=== PATIENT | female | born 1940 | race Caucasian/White ===

== ENCOUNTER 2021-10-07 15:08 | Emergency (ER) | payer MEDICARE, OTHER, SELFPAY ==
--- NOTE | 2021-10-07 15:15 | XR_ITS ---
WS: [id number] Exam: XR chest 1V portable [id number] Date/Time of Exam: 10/07/2021 3:17 PM Reason For Exam: chest pain No previous exams. The lungs are fully inflated and clear. Normal cardiomediastinal silhouette. No pleural effusions. Sp ondylosis of the thoracic spine. Remaining bony elements are intact. XR/XR chest 1V portable [id number] IMPRESSION: 1. No acute cardiopulmonary finding.
--- NOTE | 2021-10-07 15:16 | ECG_ITS ---
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 Measurements Intervals [place] Rate: 133 P: NC: QRS: -28 QRSD: 96 T: 70 QT: 302 QTc: 451 Interpretive Statements ATRIAL FIBRILLATION WITH RAPID VENTRICULAR RESPONSE INCOMPLETE RIGHT BUNDLE BRANCH BLOCK [90+ ms QRS DURATION, TERMINAL R IN V1/V2, 40+ ms S IN I/aVL/V4/V5/V6] MODERATE VOLTAGE CRITERIA FOR LVH, CONSIDER NORMAL VARIANT [MEETS CRITERIA IN ONE OF: R(aVL), S(V1), R(V5), R(V5/V6)+S(V1)] POSSIBLE SEPTAL MYOCARDIAL INFARCTION , PROBABLY OLD [30 ms Q WAVE IN V1/V2] ABNORMAL RHYTHM ECG No previous ECG available for comparison Electronically Signed On 10-07-2021 21:23:04 CDT by Danica Cleary M.D. [email or web address] Corporationconer[facility] critical care hospitalNuv[facility]un[facility].[employer]store/[id number]
[2021-10-07 15:26] VITALS: BP 149/97; PULSE 133; RESP 18; TEMP 36.6; O2SAT 97; BMI 25.3
[2021-10-07 15:51] LABS: Basophils # 0.1 10^3/uL (0.0-0.1); Basophils % 0.6 %; Eosinophils # 0.3 10^3/uL (0.0-0.8); Eosinophils % 3.5 %; Hematocrit 45.4 % (37.0-47.0); Hemoglobin 15.2 g/dL (11.5-15.3); Lymphocytes # 3.7 10^3/uL (0.8-4.8); Lymphocytes % 46.6 %; Mean Corpuscular HGB Conc 33.5 g/dL (30.0-36.0); Mean Corpuscular Volume 83.6 fl (81-99); Mean Platelet Volume 9.8 fL (7.4-10.4); Monocytes # 0.7 10^3/uL (0.2-0.9); Monocytes % 8.5 %; Neutrophils # 3.26 10^3/uL (1.8-7.7); Neutrophils % 40.7 %; Nucleated Red Blood Cells % 0 %; Platelet Count 293 10^3/cmm (130-400); Red Blood Count 5.43 10^6/uL (4.1-5.3); Red Cell Distribution Width 15.3 % (12.1-15.1)
[2021-10-07 15:55] VITALS: BP 121/77; PULSE 79; RESP 16; O2SAT 97
[2021-10-07] MEDS: sodium chloride 0.9% 1,000 ML 999 ML IV (15:56)
--- NOTE | 2021-10-07 16:12 | W.ED.ARRPALP ---
Documented by User: Hamzah Alcantar MD 10/08/21 07:10 HPI - Arrhythmia/Palpitations General: Chief Complaint: Arrhythmia/Palpitations Stated Complaint: chest pains Time Seen by Provider: 10/07/21 15:25 History of Present Illness: Patient comes in with palpitations and chest pain that started a couple days ago. States that she felt her heart racing after being outside working a couple days ago but then it went away. States it happened again today. Denies fever, cough, vomiting, diarrhea. Associated symptoms: Deny anxiety, nausea or vomiting Review of Systems Const: Denies: fever(s) or body aches Eyes: Denies: change in vision or blurry vision ENMT: Denies: throat pain or odynophagia Card: Reports: chest pain and palpitations Resp: Denies: dyspnea or productive cough GI: Denies: abdominal pain, nausea or vomiting : Denies: flank pain or dysuria Musc: Denies: neck pain or back pain Skin/Breast: Denies: rash or pruritus Neuro: Denies: headache(s) or numbness in extremities Psych: Denies: anxiety or change in appetite Endo: Denies: polyuria or excessive sweating Physical Exam Const: COMMON NORMALS: no acute distress, patient oriented x3, healthy appearing and alert HENMT: COMMON NORMALS: normocephalic and atraumatic HEAD & SCALP: normocephalic and atraumatic Eye: COMMON NORMALS: Equal, round and reactive pupils present and EOMs intact bilaterally PUPIL: Yes Equal, round and reactive pupils present Neck/C-Spine: COMMON NORMALS: full ROM and supple Resp: COMMON NORMALS: normal respiratory effort, No retractions and No use of accessory muscles Cardio: OTHER: Tachycardia with an irregularlyirregular rhythm GI: COMMON NORMALS: Normal to inspection, nondistended, normoactive bowel sounds present, Soft to palpation and non-tender PALPATION: Yes Soft to palpation Back/Pelvis: COMMON NORMALS: thoracic and lumbar spine normal to inspection and no thoracic nor lumbar tenderness Extremity: COMMON NORMALS: normal to inspection and full ROM Neuro: COMMON NORMALS: patient oriented x3 SENSORIUM/ORIENTATION: Yes alert Psych: COMMON NORMALS: mental status grossly normal and cooperative Skin: COMMON NORMALS: no rashes or lesions noted and no wounds GENERAL SKIN EXAM: no rashes or lesions noted Course Vital Signs: Vital signs: Vital Signs Temperature 97.4 F L 10/07/21 18:55 Pulse Rate 68 10/07/21 18:55 Respiratory Rate 16 10/07/21 18:55 Blood Pressure 143/88 10/07/21 18:55 Pulse Oximetry 98 10/07/21 18:55 MDM - Arrhythmia/Palpitations Medical Decision Making Patient comes in with palpitations and chest pain that started a couple days ago. States that she felt her heart racing after being outside working a couple days ago but then it went away. States it happened again today. Denies fever, cough, vomiting, diarrhea. On physical exam she is tachycardic with an irregularly irregular rhythm. Stat EKG shows A. fib with RVR, which is new for her. Will check labs, give IV fluids, start diltiazem bolus and drip, and reassess. Patient's repeat troponin here is negative she is actually converted here after Cardizem she feels much improved she would like to go home. Her vitals are charted at 644 actually another patient's vitals she is not febrile and is not requiring any oxygen patient feels improved would like to go home we will set her up with cardiology follow-up along with a cardiac event monitor she is to return if worsening she understands and agrees with plan. Lab Data : 10/07/21 15:37 10/07/21 15:37 Radiology Impressions Chest X-Ray 10/07/21 15:15 IMPRESSION: 1. No acute cardiopulmonary finding. Laboratory Results WBC 8.0 10^3/uL (4.0-10.0) 10/07/21 15:37 RBC 5.43 10^6/uL (4.1-5.3) H 10/07/21 15:37 Hgb 15.2 g/dL (11.5-15.3) 10/07/21 15:37 Hct 45.4 % (37.0-47.0) 10/07/21 15:37 MCV 83.6 fl (81-99) 10/07/21 15:37 MCH 28.0 pg (28.0-34.0) 10/07/21 15:37 MCHC 33.5 g/dL (30.0-36.0) 10/07/21 15:37 RDW 15.3 % (12.1-15.1) H 10/07/21 15:37 Plt Count 293 10^3/cmm (130-400) 10/07/21 15:37 MPV 9.8 fL (7.4-10.4) 10/07/21 15:37 Neut % (Auto) 40.7 % 10/07/21 15:37 Lymph % (Auto) 46.6 % 10/07/21 15:37 Mcdonald % (Auto) 8.5 % 10/07/21 15:37 Eos % (Auto) 3.5 % 10/07/21 15:37 Baso % (Auto) 0.6 % 10/07/21 15:37 Neut # (Auto) 3.26 10^3/uL (1.8-7.7) 10/07/21 15:37 Lymph # (Auto) 3.7 10^3/uL (0.8-4.8) 10/07/21 15:37 Mcdonald # (Auto) 0.7 10^3/uL (0.2-0.9) 10/07/21 15:37 Eos # (Auto) 0.3 10^3/uL (0.0-0.8) 10/07/21 15:37 Baso # (Auto) 0.1 10^3/uL (0.0-0.1) 10/07/21 15:37 Nucleated RBC % (auto) 0 % 10/07/21 15:37 Nucleated RBCs # 0.0 /100WBC 10/07/21 15:37 Sodium 136 mmol/L (136-145) 10/07/21 15:37 Potassium 4.0 mmol/L (3.5-5.1) 10/07/21 15:37 Chloride 99 mmol/L (98-107) 10/07/21 15:37 Carbon Dioxide 24 mmol/L (22-29) 10/07/21 15:37 Anion Gap 17.0 (5-19) 10/07/21 15:37 BUN 20 mg/dL (8-23) 10/07/21 15:37 Creatinine 1.1 mg/dL (0.5-0.9) H 10/07/21 15:37 GFR Calculation Not Reportable 10/07/21 15:37 Glucose 122 mg/dL (65-115) H 10/07/21 15:37 Calculated Osmolality 286 mOsm/kg (285-295) 10/07/21 15:37 Calcium 9.5 mg/dL (8.5-10.5) 10/07/21 15:37 Troponin T Baseline 18 ng/L (0-10) H 10/07/21 15:37 Troponin T 120 Minute 17.38 ng/L (0-10) H 10/07/21 17:23 Delta Troponin T -0.62 ABS# (0-10) L 10/07/21 17:23 EKG Data EKG done at 3:20 PM and interpreted at 3:21 PM shows atrial fibrillation with RVR, ventricular rate of 133 bpm, incomplete right bundle branch block, no ST segment elevation: Other EKG comments: Chest X-Ray 10/07/21 15:15 IMPRESSION: 1. No acute cardiopulmonary finding. Discharge Plan Discharge Patient Disposition: Home Clinical Impression: Atrial fibrillation Qualifiers: Atrial fibrillation type: unspecified Qualified Code(s): I48.91 - Unspecified atrial fibrillation Condition: Stable Discharge Orders: Discharge ED (Routine); Ordered 10/07/21 Ordered By: Alie Quick Referrals: Az Waite M.D [Physician] - 1-3 days Discharge Diet: Advance as tolerated Discharge Activity: Resume usual activity Patient Instructions: A-fib (Atrial Fibrillation) (ED) Coding Level of Care Code ED Medical Research Tech for Chg Fwd Exam Comprehensive Documented by User: Alie Quick MD 10/07/21 19:55 HPI - Arrhythmia/Palpitations General: Chief Complaint: Arrhythmia/Palpitations Stated Complaint: chest pains Time Seen by Provider: 10/07/21 15:25 Course Vital Signs: Vital signs: Vital Signs Temperature 97.4 F L 10/07/21 18:55 Pulse Rate 68 10/07/21 18:55 Respiratory Rate 16 10/07/21 18:55 Blood Pressure 143/88 10/07/21 18:55 Pulse Oximetry 98 10/07/21 18:55 MDM - Arrhythmia/Palpitations Medical Decision Making Patient comes in with palpitations and chest pain that started a couple days ago. States that she felt her heart racing after being outside working a couple days ago but then it went away. States it happened again today. Denies fever, cough, vomiting, diarrhea. On physical exam she is tachycardic with an irregularly irregular rhythm. Stat EKG shows A. fib with RVR, which is new for her. Will check labs, give IV fluids, start diltiazem bolus and drip, and reassess. Patient's repeat troponin here is negative she is actually converted here after Cardizem she feels much improved she would like to go home her vitals are charted at 644 actually another patient's vitals she is not febrile and is not requiring any oxygen patient feels improved would like to go home we will set her up with cardiology follow-up along with a cardiac event monitor she is return if worsening she understands Osman plan. Lab Data : 10/07/21 15:37 10/07/21 15:37 Radiology Impressions Chest X-Ray 10/07/21 15:15 IMPRESSION: 1. No acute cardiopulmonary finding. Laboratory Results WBC 8.0 10^3/uL (4.0-10.0) 10/07/21 15:37 RBC 5.43 10^6/uL (4.1-5.3) H 10/07/21 15:37 Hgb 15.2 g/dL (11.5-15.3) 10/07/21 15:37 Hct 45.4 % (37.0-47.0) 10/07/21 15:37 MCV 83.6 fl (81-99) 10/07/21 15:37 MCH 28.0 pg (28.0-34.0) 10/07/21 15:37 MCHC 33.5 g/dL (30.0-36.0) 10/07/21 15:37 RDW 15.3 % (12.1-15.1) H 10/07/21 15:37 Plt Count 293 10^3/cmm (130-400) 10/07/21 15:37 MPV 9.8 fL (7.4-10.4) 10/07/21 15:37 Neut % (Auto) 40.7 % 10/07/21 15:37 Lymph % (Auto) 46.6 % 10/07/21 15:37 Mcdonald % (Auto) 8.5 % 10/07/21 15:37 Eos % (Auto) 3.5 % 10/07/21 15:37 Baso % (Auto) 0.6 % 10/07/21 15:37 Neut # (Auto) 3.26 10^3/uL (1.8-7.7) 10/07/21 15:37 Lymph # (Auto) 3.7 10^3/uL (0.8-4.8) 10/07/21 15:37 Mcdonald # (Auto) 0.7 10^3/uL (0.2-0.9) 10/07/21 15:37 Eos # (Auto) 0.3 10^3/uL (0.0-0.8) 10/07/21 15:37 Baso # (Auto) 0.1 10^3/uL (0.0-0.1) 10/07/21 15:37 Nucleated RBC % (auto) 0 % 10/07/21 15:37 Nucleated RBCs # 0.0 /100WBC 10/07/21 15:37 Sodium 136 mmol/L (136-145) 10/07/21 15:37 Potassium 4.0 mmol/L (3.5-5.1) 10/07/21 15:37 Chloride 99 mmol/L (98-107) 10/07/21 15:37 Carbon Dioxide 24 mmol/L (22-29) 10/07/21 15:37 Anion Gap 17.0 (5-19) 10/07/21 15:37 BUN 20 mg/dL (8-23) 10/07/21 15:37 Creatinine 1.1 mg/dL (0.5-0.9) H 10/07/21 15:37 GFR Calculation Not Reportable 10/07/21 15:37 Glucose 122 mg/dL (65-115) H 10/07/21 15:37 Calculated Osmolality 286 mOsm/kg (285-295) 10/07/21 15:37 Calcium 9.5 mg/dL (8.5-10.5) 10/07/21 15:37 Troponin T Baseline 18 ng/L (0-10) H 10/07/21 15:37 Troponin T 120 Minute 17.38 ng/L (0-10) H 10/07/21 17:23 Delta Troponin T -0.62 ABS# (0-10) L 10/07/21 17:23 EKG Data EKG done at 3:20 PM and interpreted at 3:21 PM shows atrial fibrillation with RVR, ventricular rate of 133 bpm, incomplete right bundle branch block, no ST segment elevation: Other EKG comments: Chest X-Ray 10/07/21 15:15
[2021-10-07 16:14] LABS: Blood Urea Nitrogen 20 mg/dL (8-23); Calcium 9.5 mg/dL (8.5-10.5); Carbon Dioxide 24 mmol/L (22-29); Chloride 99 mmol/L (98-107); Glucose 122 mg/dL (65-115); Osmolality Calculated 286 mOsm/kg (285-295); Sodium 136 mmol/L (136-145); Troponin(5th) Baseline 18 ng/L (0-10)
[2021-10-07 16:16] LABS: Creatinine Clr Calc Pharmacy 39.3036
[2021-10-07 16:49] VITALS: BP 134/114; PULSE 126; RESP 16; TEMP 38.1; O2SAT 90
--- NOTE | 2021-10-07 17:16 | ECG_ITS ---
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 Measurements Intervals [place] Rate: 61 P: 52 PA: 153 QRS: -19 QRSD: 92 T: -2 QT: 423 QTc: 429 Interpretive Statements SINUS RHYTHM INCOMPLETE RIGHT BUNDLE BRANCH BLOCK [90+ ms QRS DURATION, TERMINAL R IN V1/V2, 40+ ms S IN I/aVL/V4/V5/V6] SEPTAL MYOCARDIAL INFARCTION , PROBABLY OLD [40+ ms Q WAVE IN V1/V2] Compared to ECG 10/07/2021 15:20:52 Atrial fibrillation no longer present Myocardial infarct finding still present Electronically Signed On 10-07-2021 22:04:48 CDT by Danica Cleary M.D. [email or web address]/[id number]
[2021-10-07 18:07] LABS: Troponin 5 2HR 17.38 ng/L (0-10)
[2021-10-07 18:08] LABS: Troponin 5 2HR Delta -0.62 ABS# (0-10)
[2021-10-07 18:44] VITALS: BP 134/114; PULSE 126; RESP 16; TEMP 38.1; O2SAT 90
[2021-10-07 18:55] VITALS: BP 143/88; PULSE 68; RESP 16; TEMP 36.3; O2SAT 98
--- NOTE | 2021-10-08 12:22 | DCPLANNER ---
Addendum entered by Dot Patrick 01/06/22 12:38: patients appointment was cancelled Addendum entered by Dot Patrick 10/11/21 10:27: Patient has a follow up appointment scheduled for November at 12:[address] Waite at [facility]. Clinic will call patient with appointment information. Original Note: innovation manager had message to schedule a follow up appointment for patient with cardiology. innovation manager sent patients information to the front office staff at [facility]. Patients information will be printed and reviewed. Clinic will call patient with appointment information.
== END 2021-10-07 18:55 | disposition home or self-care (01) ==
PROVIDERS: Emergency Medicine; Emergency Provider Emergency Medicine
DX: I48.91 Unspecified atrial fibrillation (principal)
CPT/HCPCS: 71045; 80048; 84484; 85025; 93005; 96360; 99285; J7030